=== PATIENT | female | born 1975 | race Two or more races ===

== ENCOUNTER 2019-03-23 07:32 | Day surgery (SDC) | payer OTHER ==
[2019-03-22 09:09] LABS: MICROSCOPIC NOT IND
[~2019-03-23] VITALS: Ht 162.6 cm; Wt 56.4 kg
[~2019-03-23 07:32] MED LIST: WILL BRING LIST
[2019-03-23 08:03] VITALS: BP 106/69
[2019-03-23] MEDS ORDERED: LACTATED RINGERS 1,000 ML IV SCH (08:04)
[2019-03-23] MEDS ORDERED: MAG PO (08:11)
[2019-03-23] MEDS ORDERED: VITAMIN K PO (08:11)
[2019-03-23] MEDS ORDERED: ASCO500T8 PO (08:11)
[2019-03-23] MEDS ORDERED: [UNRECOGNIZED DRUG - OTHER] PO (08:11)
[2019-03-23] MEDS ORDERED: IRON PO (08:11)
[2019-03-23] MEDS ORDERED: VITA200T4 PO (08:11)
[2019-03-23] MEDS ORDERED: CHOL5000 PO (08:11)
[2019-03-23] MEDS ORDERED: VIT PO (08:11)
[2019-03-23] MEDS ORDERED: SCOPOLAMINE PATCH, 1.5MG PATCH.TD72 TD ONE (08:30)
[2019-03-23] MEDS ORDERED: ACETAMINOPHEN 500 MG TABLET PO ONE (08:30)
[2019-03-23] MEDS ORDERED: FENTANYL PF 100 MCG/2ML ONE (10:16)
[2019-03-23] MEDS ORDERED: MIDAZOLAM 1 MG/ML, 2ML ONE (10:16)
[2019-03-23] MEDS ORDERED: HYDROmorphone 2 MG/ML, 1ML IVPush PRN (10:30)
[2019-03-23] MEDS ORDERED: LABETALOL 5MG/ML, 20ML IV PRN (10:30)
[2019-03-23] MEDS ORDERED: OXYcodone 5 MG/5 ML ORAL.SOL UDC PO PRN (10:30)
[2019-03-23] MEDS ORDERED: FENTANYL PF 100 MCG/2ML IV PRN (10:30)
[2019-03-23] MEDS ORDERED: HALOPERIDOL 5 MG/ML IV PRN (10:30)
[2019-03-23] MEDS ORDERED: PROMETHAZINE 25 MG/ML, 1ML IV PRN (10:30)
[2019-03-23] MEDS ORDERED: MEPERIDINE/PF 25MG/ML,1ML IVPush PRN (10:30)
[2019-03-23] MEDS ORDERED: hydrALAzine 20 MG/ML, 1ML IV PRN (10:30)
[2019-03-23] MEDS ORDERED: METOPROLOL 1 MG/ML, 5ML IV PRN (10:30)
[2019-03-23] MEDS ORDERED: BUPIVACAINE/PF 0.25% ONE (10:31)
[2019-03-23] MEDS ORDERED: EPINEPHRINE 1 MG/ML, 1ML ONE (10:32)
[2019-03-23] MEDS ORDERED: SILVER NITRATE STICK TP ONE (10:32)
[2019-03-23] MEDS ORDERED: KETOROLAC 30 MG/1 ML ONE (10:53)
[2019-03-23] MEDS ORDERED: BUPIVACAINE/PF-EPI 0.25% 1:200K INFIL ONE (11:03)
[2019-03-23] MEDS ORDERED: CEFAZOLIN 1,000 MG ONE (11:26)
[2019-03-23] MEDS ORDERED: ONDANSETRON 2MG/ML, 2ML ONE (11:26)
[2019-03-23] MEDS ORDERED: DEXAMETHASONE 4 MG/ML, 1ML ONE (11:26)
[2019-03-23] MEDS ORDERED: PROPOFOL 10 MG/ML, 20ML ONE (11:26)
[2019-03-23] MEDS ORDERED: MEPERIDINE/PF 25MG/ML,1ML ONE (11:45)
== END 2019-03-23 13:55 | disposition home or self-care (01) ==
LOC: OR 07:32
PROVIDERS: ATTEND Obstetrics & Gynecology
DX: N92.0 Excessive and frequent menstruation with regular cycle (principal); N80.0 Endometriosis of uterus; G43.909 Migraine, unspecified, not intractable, without status migrainosus; Z79.899 Other long term (current) drug therapy; Z91.040 Latex allergy status; Z80.0 Family history of malignant neoplasm of digestive organs; Z83.3 Family history of diabetes mellitus; Z82.49 Family history of ischemic heart disease and other diseases of the circulatory system
CPT/HCPCS: 36415; 58563; 81003; 84702; 88305; J0171; J1100; J1885; J2175; J2250; J2405; J2704; J3010; J3490; J7120; J0690

== ENCOUNTER → 2020-01-11 | Outpatient (CLI) | payer OTHER ==
[~2020-01-11] MED LIST changes: +ASCO500T8 PO; +CHOL5000 PO; +COD500OI PO; +IRON PO; +LACT1CAP35 PO; +MAG PO; +MAGNESIUM PO; +METH500T5 PO; +MULTIVITAMIN PO; +VIT PO; +VITA200T4 PO; +VITAMIN K PO; +ZINC PO; +[UNRECOGNIZED DRUG - OTHER] PO
[2020-01-11 16:31] LABS: BASOPHILS # (AUTO) 0.03 x10^3/uL (0-0.1); BASOPHILS % (AUTO) 1 % (0-1); EOSINOPHILS # (AUTO) 0.19 x10^3/uL (0-0.4); EOSINOPHILS % (AUTO) 4 % (1-7); LYMPHOCYTES # (AUTO) 1.59 x10^3/uL (1-3.4); LYMPHOCYTES % (AUTO) 31 % (22-44); MD NO; MEAN CORPUSCULAR HEMOGLOBIN 33.2 pg (27.0-34.8); MEAN CORPUSCULAR HGB CONC 33.9 g/dL (32.4-35.8); MONOCYTES # (AUTO) 0.29 x10^3/uL (0.2-0.8); MONOCYTES % (AUTO) 6 % (2-9); NEUTROPHILS # (AUTO) 2.99 x10^3/uL (1.8-6.8); NEUTROPHILS % (AUTO) 59 % (42-75); PLATELET COUNT 118 x10^3/uL (130-400); RED BLOOD COUNT 4.54 x10^6/uL (3.82-5.3); RED CELL DISTRIBUTION WIDTH 12.7 % (9.6-15.2)
[2020-01-11 16:37] LABS: MICROSCOPIC INDICATED
== END | disposition home or self-care (01) ==
LOC: STAR 14:25
PROVIDERS: ATTEND Obstetrics & Gynecology
DX: Z01.812 Encounter for preprocedural laboratory examination (principal); Z20.828 Contact with and (suspected) exposure to other viral communicable diseases; N93.8 Other specified abnormal uterine and vaginal bleeding; D25.9 Leiomyoma of uterus, unspecified
CPT/HCPCS: 36415; 81001; 84702; 85025; 87635

== ENCOUNTER 2020-01-15 09:41 | Day surgery (SDC) | payer OTHER ==
[~2020-01-15] VITALS: Ht 162.6 cm; Wt 55.9 kg
[2020-01-15] MEDS ORDERED: LACTATED RINGERS 1,000 ML IV SCH (10:09)
[2020-01-15 10:10] VITALS: BP 99/66
[2020-01-15] MEDS ORDERED: CHLORHEXIDINE 15 ML UDC MM ONE (10:30)
[2020-01-15 11:00] LABS: HCG UR SG 1.019 (1.003-1.030)
[2020-01-15] MEDS ORDERED: MIDAZOLAM 1 MG/ML, 2ML ONE (12:42)
[2020-01-15] MEDS ORDERED: FENTANYL PF 100 MCG/2ML ONE ×2 (12:42→13:50)
[2020-01-15] MEDS ORDERED: BUPIVACAINE/PF 0.25% ONE (12:44)
[2020-01-15] MEDS ORDERED: EPINEPHRINE 1 MG/ML, 1ML ONE (12:45)
[2020-01-15] MEDS ORDERED: SILVER NITRATE STICK TP ONE (12:45)
[2020-01-15] MEDS ORDERED: KETOROLAC 30 MG/1 ML ONE (12:48)
[2020-01-15] MEDS ORDERED: MEPERIDINE/PF 25MG/0.5ML IVPush PRN (13:00)
[2020-01-15] MEDS ORDERED: ONDANSETRON 2MG/ML, 2ML IVPush PRN (13:00)
[2020-01-15] MEDS ORDERED: OXYcodone 5 MG/5 ML ORAL.SOL UDC PO PRN (13:00)
[2020-01-15] MEDS ORDERED: PROMETHAZINE 25 MG SUPP PR PRN (13:00)
[2020-01-15] MEDS ORDERED: ACETAMINOPHEN 325 MG TABLET PO PRN (13:00)
[2020-01-15] MEDS ORDERED: DIAZEPAM 5 MG/ML, 2ML IVPush PRN (13:00)
[2020-01-15] MEDS ORDERED: LORazepam 2 MG/ML, 1ML IVPush PRN (13:00)
[2020-01-15] MEDS ORDERED: HYDROmorphone 1 MG/ML, 1ML INJ IVPush PRN (13:00)
[2020-01-15] MEDS ORDERED: PROMETHAZINE 25 MG/ML, 1ML IVPush PRN (13:00)
[2020-01-15] MEDS ORDERED: PROPOFOL 10 MG/ML, 20ML ONE (13:13)
[2020-01-15] MEDS ORDERED: CEFAZOLIN 1,000 MG ONE (13:13)
[2020-01-15] MEDS ORDERED: DEXAMETHASONE 4 MG/ML, 1ML ONE (13:13)
[2020-01-15] MEDS ORDERED: ONDANSETRON 2MG/ML, 2ML ONE (13:13)
[2020-01-15] MEDS ORDERED: ACETAMINOPHEN 650 MG/20.3 ML UDC ONE (13:50)
[2020-01-15] MEDS ORDERED: OXYcodone 5 MG/5 ML ORAL.SOL UDC ONE (13:50)
[2020-01-15] MEDS: FENTANYL PF 100 MCG/2ML IV PRN ×2 (13:52→14:03)
== END 2020-01-15 16:25 | disposition home or self-care (01) ==
LOC: OR 09:41
PROVIDERS: ATTEND Obstetrics & Gynecology
DX: N92.0 Excessive and frequent menstruation with regular cycle (principal); G43.909 Migraine, unspecified, not intractable, without status migrainosus; Z91.040 Latex allergy status; Z98.890 Other specified postprocedural states
CPT/HCPCS: 58563; 81025; J0171; J0690; J1100; J1885; J2250; J2405; J2704; J3010; J3490

== ENCOUNTER → 2020-05-05 | Outpatient (CLI) | payer OTHER | END | disposition home or self-care (01) | LOC: CFH 13:02 | PROVIDERS: ATTEND Obstetrics & Gynecology | DX: Z12.39 Encounter for other screening for malignant neoplasm of breast (principal); R92.2 Inconclusive mammogram | CPT/HCPCS: 76641; 77063; 77067 ==